=== PATIENT | male | born 1985 | race Caucasian/White ===

== ENCOUNTER 2018-12-16 16:17 | Emergency (ER) | payer MEDICAID ==
[~2018-12-16] VITALS: Ht 162.6 cm; Wt 71.0 kg
[~2018-12-16 16:17] MED LIST: ALPR0.5T PO
[2018-12-16 16:22] VITALS: BP 150/99; PULSE 85; RESP 20; Ht 162.6 cm; Wt 71.0 kg
[2018-12-16] MEDS ORDERED: ALPRAZOLAM 0.25 MG TAB PO ONE (17:00)
== END 2018-12-16 17:54 | disposition home or self-care (01) ==
LOC: FTE 16:17
DX: F41.9 Anxiety disorder, unspecified (principal); R07.89 Other chest pain
CPT/HCPCS: 82962; 93005; Z7502; Z7610